=== PATIENT | female | born 1935 | race Caucasian/White ===

== ENCOUNTER 2017-06-16 12:41 | Inpatient (IN) | payer OTHER ==
[~2017-06-16] VITALS: Ht 142.2 cm; Wt 72.0 kg
[2017-06-16 13:16] LABS: BASOPHIL (%) 0.3 % (0-1); EOSINOPHIL (%) 0.8 % (0-5); EOSINOPHIL COUNT 0.1 K/uL (0-0.3); HEMATOCRIT 32.4 % (36.0-46.0); HEMOGLOBIN 10.5 G/DL (11.9-15.5); IMMATURE GRANULOCYTE (%) 0.8 % (0.0-0.7); LYMPHOCYTE (%) 9.6 % (15-42); LYMPHOCYTE COUNT 0.6 K/uL (1.0-2.8); MCH 33.1 PG (29.0-34.0); MCHC 32.4 G/DL (30.0-36.0); MCV 102.2 FL (83-99); MONOCYTE COUNT 0.3 K/uL (0-0.8); NEUTROPHIL (%) 83.5 % (45-76); NEUTROPHIL COUNT 5.3 K/uL (1.8-6.4); PLATELET COUNT 244 K/uL (156-360); RBC DIS.WIDTH-SD 60.7 % (39-53); RED BLOOD COUNT 3.17 M/uL (3.80-5.20); WHITE BLOOD COUNT 6.4 K/uL (4.1-10.2)
[2017-06-16 13:26] LABS: CHLORIDE 111 mEq/L (99-109); POTASSIUM 4.2 mEq/L (3.7-5.4); SODIUM 145 mEq/L (136-147)
[2017-06-16 13:27] LABS: GLUCOSE 113 mg/dL (70-99)
[2017-06-16 13:31] LABS: CREATININE 1.1 mg/dL (0.6-1.3); GFR ESTIMATE (CALCULATED) 51 mL/min/
[2017-06-16 13:32] LABS: UREA NITROGEN (BUN) 18 mg/dL (9-23)
[2017-06-16 13:37] LABS: TROP-I INTERPRETATION NEGATIVE; TROPONIN-I < 0.01 ng/mL (0.0-0.30)
[2017-06-16 14:06] LABS: PTT 30.1 SEC (25-37)
[2017-06-16 14:27] LABS: INTER. NORMALIZED RATIO 1.2
[2017-06-16] MEDS ORDERED: VENTOLIN HFA18 GM IH (14:33)
[2017-06-16] MEDS ORDERED: MOBIC15 MG PO (14:34)
[2017-06-16] MEDS ORDERED: ZOLOFT50 MG PO (14:35)
[2017-06-16] MEDS ORDERED: MOTRIN800 MG PO (14:36)
[2017-06-16] MEDS ORDERED: ZOCOR20 MG PO (14:37)
[2017-06-16] MEDS ORDERED: COZAAR50 MG PO (14:39)
[2017-06-16] MEDS ORDERED: TYLENOL PM EX-1 EACH PO (14:40)
[2017-06-16] MEDS ORDERED: LO-DOSE ASPIRIN81 M1 PO (14:42)
[2017-06-16] MEDS ORDERED: VITAMIN D31000 UNIT PO (14:44)
[2017-06-16] MEDS ORDERED: DUONEB 2.5-0.5 M3 ML AEROSOL (14:46)
[2017-06-16 14:47] LABS: HDL CHOLESTEROL 68 MG/DL (Desirable>=50); LDL CHOLESTEROL 53 mg/dL (Desirable<100); NON-HDL CHOLESTEROL 66 mg/dL (Desirable<160); TOTAL CHOLESTEROL 134 mg/dL (Desirable<200); TRIGLYCERIDES 65 MG/DL (Normal: <150)
[2017-06-16 15:23] LABS: FERRITIN 39 NG/ML (10-291)
[2017-06-16 15:32] LABS: FOLIC ACID (FOLATE) 20.5 NG/ML (5.0-22.0)
[2017-06-16 15:37] LABS: THYROTROPIN (TSH) 0.74 MIU/L (0.4-5.5)
[2017-06-16 19:04] LABS: TROP-I INTERPRETATION NEGATIVE; TROPONIN-I 0.01 ng/mL (0.0-0.30)
[2017-06-16 21:30] VITALS: BP 141/90
[2017-06-16 21:36] VITALS: BP 141/90
[2017-06-16 23:10] VITALS: BP 147/71
[2017-06-17 01:24] LABS: TROP-I INTERPRETATION NEGATIVE; TROPONIN-I < 0.01 ng/mL (0.0-0.30)
[2017-06-17 04:02] VITALS: BP 126/91
[2017-06-17 06:16] LABS: ALBUMIN 3.5 G/DL (3.2-4.8); ALKALINE PHOSPHATASE 93 IU/L (3-129); ALT (GPT) 12 IU/L (3-49); AST (GOT) 10 IU/L (2-34); CHLORIDE 109 MEQ/L (99-109); CREATININE 1.1 MG/DL (0.6-1.3); GFR ESTIMATE (CALCULATED) 51 mL/min/; GLUCOSE 141 mg/dL (70-99); POTASSIUM 4.7 MEQ/L (3.7-5.4); SODIUM 143 MEQ/L (136-147); TOTAL BILIRUBIN 0.4 MG/DL (0.0-1.0); TOTAL PROTEIN 5.6 G/DL (6.4-8.3); UREA NITROGEN (BUN) 19 mg/dL (9-23)
[2017-06-17 06:31] LABS: HEMATOCRIT 30.8 % (36.0-46.0); HEMOGLOBIN 9.6 G/DL (11.9-15.5); MCH 32.1 PG (29.0-34.0); MCHC 31.2 G/DL (30.0-36.0); PLATELET COUNT 246 K/uL (156-360); RBC DIS.WIDTH-CV 15.9 % (11.8-14.6); RBC DIS.WIDTH-SD 59.7 % (39-53); RED BLOOD COUNT 2.99 M/uL (3.80-5.20)
[2017-06-17 09:00] VITALS: BP 141/79
[2017-06-17 12:43] VITALS: BP 160/83
[2017-06-17 15:25] VITALS: BP 126/65
[2017-06-17 19:00] VITALS: BP 145/89
[2017-06-17 23:00] VITALS: BP 141/83
[2017-06-18 04:00] VITALS: BP 157/90
[2017-06-18 08:00] VITALS: BP 146/76
[2017-06-18 12:00] VITALS: BP 138/75
[2017-06-18 17:13] VITALS: BP 136/78
[2017-06-18 19:00] VITALS: BP 125/68
[2017-06-18 22:30] VITALS: BP 124/82
[2017-06-19] VITALS (11 sets, daily range): BP systolic 121–196; BP diastolic 61–99
[2017-06-19 16:53] LABS: TROP-I INTERPRETATION NEGATIVE; TROPONIN-I < 0.01 ng/mL (0.0-0.30)
[2017-06-19 20:28] LABS: BASOPHIL (%) 0.1 % (0-1); EOSINOPHIL (%) 0 % (0-5); HEMATOCRIT 36.1 % (36.0-46.0); HEMOGLOBIN 11.3 G/DL (11.9-15.5); IMMATURE GRANULOCYTE (%) 0.3 % (0.0-0.7); LYMPHOCYTE COUNT 0.2 K/uL (1.0-2.8); MCH 31.9 PG (29.0-34.0); MCHC 31.3 G/DL (30.0-36.0); MONOCYTE (%) 7.3 % (3-12); MONOCYTE COUNT 1.1 K/uL (0-0.8); NEUTROPHIL (%) 91.3 % (45-76); NEUTROPHIL COUNT 13.9 K/uL (1.8-6.4); RBC DIS.WIDTH-CV 15.8 % (11.8-14.6); RBC DIS.WIDTH-SD 60.3 % (39-53); RED BLOOD COUNT 3.54 M/uL (3.80-5.20); WHITE BLOOD COUNT 15.2 K/uL (4.1-10.2)
[2017-06-19 20:39] LABS: ALBUMIN 3.4 G/DL (3.2-4.8); CHLORIDE 108 MEQ/L (99-109); PLATELET COUNT 336 K/uL (156-360); POTASSIUM 4.4 MEQ/L (3.7-5.4); SODIUM 140 MEQ/L (136-147); TOTAL BILIRUBIN 0.4 MG/DL (0.0-1.0)
[2017-06-19 21:01] LABS: ALKALINE PHOSPHATASE 73 IU/L (3-129); ALT (GPT) 16 IU/L (3-49); AST (GOT) 10 IU/L (2-34); CREATININE 1.1 MG/DL (0.6-1.3); GFR ESTIMATE (CALCULATED) 51 mL/min/; GLUCOSE 174 mg/dL (70-99); TOTAL PROTEIN 5.5 G/DL (6.4-8.3)
[2017-06-19 21:02] LABS: UREA NITROGEN (BUN) 40 mg/dL (9-23)
[2017-06-19 21:18] LABS: C-REACTIVE PROTEIN 4.3 MG/L (0-10)
[2017-06-19 23:37] LABS: TROP-I INTERPRETATION NEGATIVE; TROPONIN-I < 0.01 ng/mL (0.0-0.30)
[2017-06-20] VITALS (15 sets, daily range): BP systolic 88–150; BP diastolic 58–90
[2017-06-20 06:50] LABS: TROP-I INTERPRETATION NEGATIVE; TROPONIN-I < 0.01 ng/mL (0.0-0.30)
[2017-06-20 15:29] LABS: INTER. NORMALIZED RATIO 1.6
[2017-06-20 15:32] LABS: PTT 20.1 SEC (25-37)
[2017-06-20 15:34] LABS: ANISOCYTOSIS 1+; BASOPHIL (%) 0.1 % (0-1); BICARBONATE 23.1 mEq/L (22-26); CARBOXY HGB 1.9 % (0-5); COMMENTS - BLOOD GASES A+C+; DEVICE VENT; EOSINOPHIL (%) 0 % (0-5); FI02 50 %; HEMATOCRIT 31.9 % (36.0-46.0); HEMOGLOBIN 9.9 G/DL (11.9-15.5); IMMATURE GRANULOCYTE (%) 0.2 % (0.0-0.7); LYMPHOCYTE (%) 2.3 % (15-42); LYMPHOCYTE COUNT 0.2 K/uL (1.0-2.8); MACROCYTES 1+; MCV 103.2 FL (83-99); METHEMOGLOBIN 1.4 % (0-1.5); MONOCYTE COUNT 0.4 K/uL (0-0.8); NEUTROPHIL (%) 93.4 % (45-76); NEUTROPHIL COUNT 8.4 K/uL (1.8-6.4); PCO2 40 mm Hg (35-45); PLAT.SUFFICIENCY ADEQUATE; PO2 112 mm Hg (80-100); POIKILOCYTOSIS 3+; RBC DIS.WIDTH-CV 16.2 % (11.8-14.6); RBC DIS.WIDTH-SD 61.7 % (39-53); RED BLOOD COUNT 3.09 M/uL (3.80-5.20); SCHISTOCYTES 1+; SITE LR; pH 7.37 (7.35-7.45)
[2017-06-20 15:35] LABS: MECHANICAL RATE 16 resp/min; MODE AC; PEEP 5 CM/H20; TIDAL VOLUME 400 ML; TOTAL RESP RATE 16 resp/min
[2017-06-20 15:36] LABS: PLATELET COUNT 229 K/uL (156-360)
[2017-06-20 15:39] LABS: ALBUMIN 2.7 G/DL (3.2-4.8); ALKALINE PHOSPHATASE 45 IU/L (3-129); CHLORIDE 112 MEQ/L (99-109); GFR ESTIMATE (CALCULATED) 56 mL/min/; GLUCOSE 179 mg/dL (70-99); MAGNESIUM 2.6 mg/dl (1.3-2.7); PHOSPHORUS 2.9 mg/dL (2.5-4.9); POTASSIUM 4.6 MEQ/L (3.7-5.4); SODIUM 141 MEQ/L (136-147); TOTAL BILIRUBIN 0.4 MG/DL (0.0-1.0); UREA NITROGEN (BUN) 37 mg/dL (9-23)
[2017-06-20 15:41] LABS: ALT (GPT) 38 IU/L (3-49); AST (GOT) 32 IU/L (2-34); TOTAL PROTEIN 4.5 G/DL (6.4-8.3)
[2017-06-20 20:42] LABS: BICARBONATE 22.6 mEq/L (22-26); CARBOXY HGB 1.4 % (0-5); METHEMOGLOBIN 1.6 % (0-1.5); PO2 109 mm Hg (80-100)
[2017-06-20 20:44] LABS: DEVICE 980; FI02 40 %; MECHANICAL RATE 16 resp/min; MODE ACVC; PCO2 47 mm Hg (35-45); PEEP 5 CM/H20; SITE RR; TIDAL VOLUME 400 ML; TOTAL RESP RATE 16 resp/min; pH 7.29 (7.35-7.45)
[2017-06-20 20:45] LABS: COMMENTS - BLOOD GASES A+C+
[2017-06-21] VITALS (24 sets, daily range): BP systolic 92–128; BP diastolic 58–89
[2017-06-21 05:45] LABS: HEMOGLOBIN 9.4 G/DL (11.9-15.5); MCH 32.4 PG (29.0-34.0); MCHC 31.3 G/DL (30.0-36.0); MCV 103.4 FL (83-99); PLATELET COUNT 197 K/uL (156-360); RBC DIS.WIDTH-CV 16.4 % (11.8-14.6); RBC DIS.WIDTH-SD 62.2 % (39-53); WHITE BLOOD COUNT 9.2 K/uL (4.1-10.2)
[2017-06-21 06:10] LABS: CHLORIDE 115 MEQ/L (99-109); GFR ESTIMATE (CALCULATED) 56 mL/min/; GLUCOSE 133 mg/dL (70-99); POTASSIUM 4.8 MEQ/L (3.7-5.4); SODIUM 144 MEQ/L (136-147); UREA NITROGEN (BUN) 32 mg/dL (9-23)
[2017-06-21 09:41] LABS: INTER. NORMALIZED RATIO 1.4
[2017-06-21 12:01] LABS: BASE EXCESS -4.4 mEq/L (-3 to +3); BICARBONATE 21.7 mEq/L (22-26); CARBOXY HGB 1.6 % (0-5); METHEMOGLOBIN 1.8 % (0-1.5); PCO2 43 mm Hg (35-45); PO2 100 mm Hg (80-100); pH 7.31 (7.35-7.45)
[2017-06-21 12:02] LABS: COMMENTS - BLOOD GASES A+C+; DEVICE VENT; FI02 30 %; MODE SPONT; PRES. SUPPORT 11 CM/H2O; SITE RR; TOTAL RESP RATE 11 resp/min
[2017-06-21 13:23] LABS: BASE EXCESS -3.1 mEq/L (-3 to +3); BICARBONATE 22.7 mEq/L (22-26); CARBOXY HGB 1.7 % (0-5); COMMENTS - BLOOD GASES A+C+; METHEMOGLOBIN 1.8 % (0-1.5); PCO2 43 mm Hg (35-45); PO2 94 mm Hg (80-100); SITE LR; pH 7.33 (7.35-7.45)
[2017-06-21 13:24] LABS: DEVICE VENT; FI02 30 %; MODE SPONT; PRES. SUPPORT 11 CM/H2O; TOTAL RESP RATE 8 resp/min
[2017-06-22] VITALS (23 sets, daily range): BP systolic 109–170; BP diastolic 68–108
[2017-06-22 09:13] LABS: ALBUMIN 2.8 G/DL (3.2-4.8); ALKALINE PHOSPHATASE 42 IU/L (3-129); ALT (GPT) 23 IU/L (3-49); CHLORIDE 116 MEQ/L (99-109); CREATININE 1.1 MG/DL (0.6-1.3); GFR ESTIMATE (CALCULATED) 51 mL/min/; POTASSIUM 4.7 MEQ/L (3.7-5.4); SODIUM 146 MEQ/L (136-147); TOTAL BILIRUBIN 0.4 MG/DL (0.0-1.0); TOTAL PROTEIN 4.4 G/DL (6.4-8.3); UREA NITROGEN (BUN) 29 mg/dL (9-23)
[2017-06-22 09:14] LABS: AST (GOT) 9 IU/L (2-34); GLUCOSE 98 mg/dL (70-99)
[2017-06-23] VITALS (16 sets, daily range): BP systolic 127–176; BP diastolic 77–125
[2017-06-23 05:50] LABS: BASOPHIL (%) 0.1 % (0-1); EOSINOPHIL (%) 0.4 % (0-5); EOSINOPHIL COUNT 0.1 K/uL (0-0.3); HEMATOCRIT 32.3 % (36.0-46.0); HEMOGLOBIN 10.1 G/DL (11.9-15.5); IMMATURE GRANULOCYTE (%) 0.7 % (0.0-0.7); LYMPHOCYTE (%) 6.1 % (15-42); LYMPHOCYTE COUNT 0.8 K/uL (1.0-2.8); MCH 32.6 PG (29.0-34.0); MCHC 31.3 G/DL (30.0-36.0); MCV 104.2 FL (83-99); MONOCYTE (%) 7.6 % (3-12); NEUTROPHIL (%) 85.1 % (45-76); NEUTROPHIL COUNT 11.5 K/uL (1.8-6.4); PLATELET COUNT 247 K/uL (156-360); RBC DIS.WIDTH-CV 16.1 % (11.8-14.6); RBC DIS.WIDTH-SD 62.2 % (39-53); WHITE BLOOD COUNT 13.5 K/uL (4.1-10.2)
[2017-06-23 06:09] LABS: CHLORIDE 113 MEQ/L (99-109); CREATININE 0.9 MG/DL (0.6-1.3); GFR ESTIMATE (CALCULATED) > 59 mL/min/; GLUCOSE 74 mg/dL (70-99); MAGNESIUM 2.1 mg/dl (1.3-2.7); PHOSPHORUS 2.7 mg/dL (2.5-4.9); POTASSIUM 4.5 MEQ/L (3.7-5.4); SODIUM 145 MEQ/L (136-147); UREA NITROGEN (BUN) 24 mg/dL (9-23)
[2017-06-24] VITALS (11 sets, daily range): BP systolic 121–187; BP diastolic 70–122
[2017-06-24 06:06] LABS: BASOPHIL (%) 0.1 % (0-1); EOSINOPHIL (%) 0.5 % (0-5); EOSINOPHIL COUNT 0.1 K/uL (0-0.3); HEMATOCRIT 34.2 % (36.0-46.0); HEMOGLOBIN 10.5 G/DL (11.9-15.5); IMMATURE GRANULOCYTE (%) 0.6 % (0.0-0.7); LYMPHOCYTE (%) 6.3 % (15-42); LYMPHOCYTE COUNT 0.8 K/uL (1.0-2.8); MCH 31.3 PG (29.0-34.0); MCHC 30.7 G/DL (30.0-36.0); MCV 101.8 FL (83-99); MONOCYTE (%) 7.8 % (3-12); NEUTROPHIL (%) 84.7 % (45-76); PLATELET COUNT 266 K/uL (156-360); RBC DIS.WIDTH-CV 15.4 % (11.8-14.6); RBC DIS.WIDTH-SD 57.8 % (39-53); RED BLOOD COUNT 3.36 M/uL (3.80-5.20); WHITE BLOOD COUNT 12.9 K/uL (4.1-10.2)
[2017-06-24 06:41] LABS: CHLORIDE 112 MEQ/L (99-109); CREATININE 0.7 MG/DL (0.6-1.3); GFR ESTIMATE (CALCULATED) > 59 mL/min/; POTASSIUM 4.2 MEQ/L (3.7-5.4); SODIUM 146 MEQ/L (136-147); UREA NITROGEN (BUN) 18 mg/dL (9-23)
[2017-06-24 06:56] LABS: GLUCOSE 101 mg/dL (70-99)
[2017-06-25] VITALS (13 sets, daily range): BP systolic 117–140; BP diastolic 71–103
[2017-06-25 05:01] LABS: BASOPHIL (%) 0.1 % (0-1); EOSINOPHIL (%) 0.1 % (0-5); HEMATOCRIT 34.4 % (36.0-46.0); HEMOGLOBIN 11.1 G/DL (11.9-15.5); IMMATURE GRANULOCYTE (%) 0.7 % (0.0-0.7); LYMPHOCYTE (%) 3.8 % (15-42); LYMPHOCYTE COUNT 0.7 K/uL (1.0-2.8); MCH 32.3 PG (29.0-34.0); MCHC 32.3 G/DL (30.0-36.0); MONOCYTE (%) 8.8 % (3-12); MONOCYTE COUNT 1.5 K/uL (0-0.8); NEUTROPHIL (%) 86.5 % (45-76); PLATELET COUNT 279 K/uL (156-360); RBC DIS.WIDTH-SD 54.6 % (39-53); RED BLOOD COUNT 3.44 M/uL (3.80-5.20); WHITE BLOOD COUNT 17.3 K/uL (4.1-10.2)
[2017-06-25 05:16] LABS: CHLORIDE 110 mEq/L (99-109); POTASSIUM 3.8 mEq/L (3.7-5.4); SODIUM 145 mEq/L (136-147)
[2017-06-25 05:18] LABS: GLUCOSE 129 mg/dL (70-99)
[2017-06-25 05:22] LABS: CREATININE 0.7 mg/dL (0.6-1.3); GFR ESTIMATE (CALCULATED) > 59 mL/min/
[2017-06-25 05:23] LABS: UREA NITROGEN (BUN) 11 mg/dL (9-23)
[2017-06-25 16:17] LABS: APPEARANCE CLEAR ((CLEAR)); BILIRUBIN NEGATIVE; BLOOD MODERATE; COLOR YELLOW ((YELLOW)); GLUCOSE (STRIP) 50; KETONES NEGATIVE; LEUKOCYTES NEGATIVE; NITRITE NEGATIVE; PROTEIN (STRIP) NEGATIVE; SPECIFIC GRAVITY 1.019 (1.000-1.030); UROBILINOGEN 0.2 MG/DL (0.2-1.0)
[2017-06-25 16:22] LABS: RED BLOOD CELLS 0-5 /HPF (0-5); WHITE BLOOD CELLS 0-5 /HPF (0-5)
[2017-06-25 16:23] LABS: BACTERIA NONE SEEN /HPF; EPITHELIAL CELLS NONE SEEN /HPF; HYALINE CASTS 0-5 /LPF; MUCUS TRACE /LPF; UCUL ADDED? NO
[2017-06-25 22:15] LABS: INTER. NORMALIZED RATIO 2.3
[2017-06-25 22:18] LABS: PTT 34.7 SEC (25-37)
[2017-06-26] VITALS (8 sets, daily range): BP systolic 136–170; BP diastolic 78–112
[2017-06-26 05:22] LABS: CHLORIDE 107 MEQ/L (99-109); CREATININE 0.7 MG/DL (0.6-1.3); GFR ESTIMATE (CALCULATED) > 59 mL/min/; GLUCOSE 113 mg/dL (70-99); POTASSIUM 3.5 MEQ/L (3.7-5.4); SODIUM 144 MEQ/L (136-147); UREA NITROGEN (BUN) 9 mg/dL (9-23)
[2017-06-26 05:37] LABS: BASOPHIL (%) 0.1 % (0-1); EOSINOPHIL (%) 0.1 % (0-5); HEMOGLOBIN 10.2 G/DL (11.9-15.5); IMMATURE GRANULOCYTE (%) 0.8 % (0.0-0.7); LYMPHOCYTE COUNT 0.5 K/uL (1.0-2.8); MCH 32.4 PG (29.0-34.0); MCHC 31.9 G/DL (30.0-36.0); MCV 101.6 FL (83-99); MONOCYTE (%) 7.9 % (3-12); MONOCYTE COUNT 1.4 K/uL (0-0.8); NEUTROPHIL (%) 88.1 % (45-76); NEUTROPHIL COUNT 15.8 K/uL (1.8-6.4); PLATELET COUNT 263 K/uL (156-360); RBC DIS.WIDTH-CV 15.7 % (11.8-14.6); RBC DIS.WIDTH-SD 58.5 % (39-53); RED BLOOD COUNT 3.15 M/uL (3.80-5.20); WHITE BLOOD COUNT 17.9 K/uL (4.1-10.2)
[2017-06-27] VITALS (24 sets, daily range): BP systolic 104–203; BP diastolic 55–158
[2017-06-27 06:43] LABS: BASE EXCESS 4.4 mEq/L (-3 to +3); CARBOXY HGB 2.1 % (0-5); METHEMOGLOBIN 1.4 % (0-1.5); PCO2 53 mm Hg (35-45); pH 7.37 (7.35-7.45)
[2017-06-27 06:44] LABS: BICARBONATE 30.6 mEq/L (22-26); COMMENTS - BLOOD GASES A+C+; DEVICE NC; O2 FLOW 4 L/MIN; PO2 68 mm Hg (80-100); SITE RR; TOTAL RESP RATE 30 resp/min
[2017-06-27 07:11] LABS: HEMATOCRIT 34.5 % (36.0-46.0); HEMOGLOBIN 10.7 G/DL (11.9-15.5); MCH 31.1 PG (29.0-34.0); MCV 100.3 FL (83-99); RBC DIS.WIDTH-CV 15.4 % (11.8-14.6); RBC DIS.WIDTH-SD 56.7 % (39-53); RED BLOOD COUNT 3.44 M/uL (3.80-5.20); WHITE BLOOD COUNT 22.9 K/uL (4.1-10.2)
[2017-06-27 07:22] LABS: PLATELET COUNT 379 K/uL (156-360)
[2017-06-27 08:24] LABS: CHLORIDE 106 MEQ/L (99-109); CREATININE 0.7 MG/DL (0.6-1.3); GFR ESTIMATE (CALCULATED) > 59 mL/min/; GLUCOSE 117 mg/dL (70-99); POTASSIUM 3.3 MEQ/L (3.7-5.4); SODIUM 146 MEQ/L (136-147); UREA NITROGEN (BUN) 11 mg/dL (9-23)
[2017-06-27 10:04] LABS: MAGNESIUM 1.7 mg/dl (1.3-2.7)
[2017-06-28] VITALS (10 sets, daily range): BP systolic 128–152; BP diastolic 79–89
[2017-06-28 05:24] LABS: BASOPHIL (%) 0.1 % (0-1); EOSINOPHIL (%) 0 % (0-5); HEMATOCRIT 30.8 % (36.0-46.0); HEMOGLOBIN 9.9 G/DL (11.9-15.5); IMMATURE GRANULOCYTE (%) 0.8 % (0.0-0.7); LYMPHOCYTE (%) 2.9 % (15-42); LYMPHOCYTE COUNT 0.4 K/uL (1.0-2.8); MCH 32.2 PG (29.0-34.0); MCHC 32.1 G/DL (30.0-36.0); MCV 100.3 FL (83-99); MONOCYTE (%) 1.2 % (3-12); MONOCYTE COUNT 0.2 K/uL (0-0.8); NEUTROPHIL COUNT 13.9 K/uL (1.8-6.4); PLATELET COUNT 288 K/uL (156-360); RBC DIS.WIDTH-CV 15.5 % (11.8-14.6); RBC DIS.WIDTH-SD 56.9 % (39-53); RED BLOOD COUNT 3.07 M/uL (3.80-5.20); WHITE BLOOD COUNT 14.6 K/uL (4.1-10.2)
[2017-06-28 06:01] LABS: CHLORIDE 106 MEQ/L (99-109); CREATININE 0.8 MG/DL (0.6-1.3); GFR ESTIMATE (CALCULATED) > 59 mL/min/; GLUCOSE 159 mg/dL (70-99); MAGNESIUM 1.7 mg/dl (1.3-2.7); POTASSIUM 3.1 MEQ/L (3.7-5.4); SODIUM 151 MEQ/L (136-147); UREA NITROGEN (BUN) 12 mg/dL (9-23)
[2017-06-29] VITALS (17 sets, daily range): BP systolic 110–162; BP diastolic 64–100
[2017-06-29 05:46] LABS: BASOPHIL (%) 0.1 % (0-1); EOSINOPHIL (%) 0 % (0-5); HEMATOCRIT 29.8 % (36.0-46.0); HEMOGLOBIN 9.2 G/DL (11.9-15.5); IMMATURE GRANULOCYTE (%) 0.8 % (0.0-0.7); LYMPHOCYTE COUNT 0.4 K/uL (1.0-2.8); MCH 31.1 PG (29.0-34.0); MCHC 30.9 G/DL (30.0-36.0); MCV 100.7 FL (83-99); MONOCYTE (%) 1.1 % (3-12); MONOCYTE COUNT 0.2 K/uL (0-0.8); PLATELET COUNT 280 K/uL (156-360); RBC DIS.WIDTH-CV 15.7 % (11.8-14.6); RBC DIS.WIDTH-SD 58.3 % (39-53); RED BLOOD COUNT 2.96 M/uL (3.80-5.20); WHITE BLOOD COUNT 20.9 K/uL (4.1-10.2)
[2017-06-29 07:25] LABS: CHLORIDE 115 MEQ/L (99-109); CREATININE 0.9 MG/DL (0.6-1.3); GFR ESTIMATE (CALCULATED) > 59 mL/min/; GLUCOSE 136 mg/dL (70-99); POTASSIUM 3.7 MEQ/L (3.7-5.4); SODIUM 154 MEQ/L (136-147); UREA NITROGEN (BUN) 20 mg/dL (9-23)
[2017-06-29 10:56] LABS: C DIFF TOXIN NEGATIVE (NEGATIVE)
[2017-06-29 16:22] LABS: HEMOGLOBIN 7.5 G/DL (11.9-15.5); MCH 32.1 PG (29.0-34.0); MCHC 31.3 G/DL (30.0-36.0); MCV 102.6 FL (83-99); PLATELET COUNT 277 K/uL (156-360); RBC DIS.WIDTH-CV 15.9 % (11.8-14.6); RED BLOOD COUNT 2.34 M/uL (3.80-5.20); WHITE BLOOD COUNT 21.3 K/uL (4.1-10.2)
[2017-06-29 17:19] LABS: INTER. NORMALIZED RATIO 1.4
[2017-06-29 17:23] LABS: CHLORIDE 119 MEQ/L (99-109); CREATININE 0.8 MG/DL (0.6-1.3); GFR ESTIMATE (CALCULATED) > 59 mL/min/; GLUCOSE 140 mg/dL (70-99); POTASSIUM 4.2 MEQ/L (3.7-5.4); SODIUM 153 MEQ/L (136-147); UREA NITROGEN (BUN) 25 mg/dL (9-23)
[2017-06-29 17:29] LABS: PTT 27.8 SEC (25-37)
[2017-06-29 17:44] LABS: APPEARANCE SL.HAZY ((CLEAR)); BILIRUBIN NEGATIVE; BLOOD NEGATIVE; COLOR YELLOW ((YELLOW)); GLUCOSE (STRIP) NEGATIVE; KETONES NEGATIVE; LEUKOCYTES NEGATIVE; NITRITE NEGATIVE; PROTEIN (STRIP) NEGATIVE; SPECIFIC GRAVITY 1.017 (1.000-1.030); UROBILINOGEN 0.2 MG/DL (0.2-1.0)
[2017-06-29 17:54] LABS: BACTERIA RARE /HPF; CALCIUM OXALATE CRYSTALS 3+ /HPF; EPITHELIAL CELLS RARE /HPF; HYALINE CASTS 30-40 /LPF; MUCUS 4+ /LPF
[2017-06-30] VITALS (12 sets, daily range): BP systolic 129–161; BP diastolic 82–110
[2017-06-30 00:03] LABS: CHLORIDE 109 MEQ/L (99-109); CREATININE 0.8 MG/DL (0.6-1.3); GFR ESTIMATE (CALCULATED) > 59 mL/min/; GLUCOSE 204 mg/dL (70-99); POTASSIUM 3.5 MEQ/L (3.7-5.4); SODIUM 145 MEQ/L (136-147); UREA NITROGEN (BUN) 25 mg/dL (9-23)
[2017-06-30 05:44] LABS: BASOPHIL (%) 0.1 % (0-1); EOSINOPHIL (%) 0 % (0-5); HEMATOCRIT 32.2 % (36.0-46.0); LYMPHOCYTE COUNT 0.2 K/uL (1.0-2.8); MCH 31.8 PG (29.0-34.0); MCHC 33.2 G/DL (30.0-36.0); MONOCYTE (%) 2.1 % (3-12); MONOCYTE COUNT 0.5 K/uL (0-0.8); NEUTROPHIL (%) 95.8 % (45-76); NEUTROPHIL COUNT 20.2 K/uL (1.8-6.4); PLATELET COUNT 248 K/uL (156-360); RBC DIS.WIDTH-CV 16.9 % (11.8-14.6); RBC DIS.WIDTH-SD 58.6 % (39-53); WHITE BLOOD COUNT 21.1 K/uL (4.1-10.2)
[2017-06-30 05:45] LABS: HEMOGLOBIN 10.7 G/DL (11.9-15.5); MCV 95.8 FL (83-99); RED BLOOD COUNT 3.36 M/uL (3.80-5.20)
[2017-06-30 06:01] LABS: CHLORIDE 108 MEQ/L (99-109); CREATININE 0.8 MG/DL (0.6-1.3); GFR ESTIMATE (CALCULATED) > 59 mL/min/; GLUCOSE 134 mg/dL (70-99); POTASSIUM 3.4 MEQ/L (3.7-5.4); SODIUM 147 MEQ/L (136-147); UREA NITROGEN (BUN) 26 mg/dL (9-23)
[2017-06-30 12:25] LABS: HEMATOCRIT 34.2 % (36.0-46.0); HEMOGLOBIN 11.4 G/DL (11.9-15.5); MCV 96.1 FL (83-99)
[2017-06-30 14:18] LABS: STOOL OCCULT BLD 1ST SPECIMEN POSITIVE
[2017-06-30 17:37] LABS: BASE EXCESS 2.9 mEq/L (-3 to +3); BICARBONATE 28.5 mEq/L (22-26); CARBOXY HGB 3.2 % (0-5); COMMENTS - BLOOD GASES A+C+; DEVICE NC; O2 FLOW 2 L/MIN; PCO2 47 mm Hg (35-45); PO2 81 mm Hg (80-100); SITE RR; pH 7.39 (7.35-7.45)
[2017-06-30 17:44] LABS: HEMATOCRIT 34.6 % (36.0-46.0); HEMOGLOBIN 11.7 G/DL (11.9-15.5); MCV 96.1 FL (83-99)
[2017-07-01] VITALS: BP 121/64
[2017-07-01 00:45] LABS: HEMATOCRIT 33.3 % (36.0-46.0); HEMOGLOBIN 11.1 G/DL (11.9-15.5); MCV 96.2 FL (83-99)
[2017-07-01 04:00] VITALS: BP 125/76
[2017-07-01 05:33] LABS: HEMATOCRIT 32.8 % (36.0-46.0)
[2017-07-01 06:00] LABS: CHLORIDE 111 MEQ/L (99-109); CREATININE 1.1 MG/DL (0.6-1.3); GFR ESTIMATE (CALCULATED) 51 mL/min/; GLUCOSE 158 mg/dL (70-99); MAGNESIUM 1.8 mg/dl (1.3-2.7); SODIUM 147 MEQ/L (136-147); UREA NITROGEN (BUN) 37 mg/dL (9-23)
[2017-07-01 06:01] LABS: POTASSIUM 4.5 MEQ/L (3.7-5.4)
[2017-07-01 07:51] VITALS: BP 151/51
[2017-07-01 11:01] LABS: HEMATOCRIT 33.4 % (36.0-46.0); MCV 95.7 FL (83-99)
[2017-07-01 12:00] VITALS: BP 123/71
[2017-07-01 16:05] VITALS: BP 134/90
[2017-07-01 18:18] LABS: HEMATOCRIT 34.6 % (36.0-46.0); HEMOGLOBIN 11.4 G/DL (11.9-15.5); MCV 95.1 FL (83-99)
[2017-07-01 20:00] VITALS: BP 117/75
[2017-07-02] VITALS: BP 104/45
[2017-07-02 00:44] LABS: HEMATOCRIT 36.1 % (36.0-46.0); HEMOGLOBIN 12.2 G/DL (11.9-15.5); MCV 94.5 FL (83-99)
[2017-07-02 05:13] LABS: HEMATOCRIT 40.6 % (36.0-46.0); HEMOGLOBIN 13.1 G/DL (11.9-15.5); MCV 96.2 FL (83-99)
[2017-07-02 05:30] LABS: CHLORIDE 109 MEQ/L (99-109); GLUCOSE 159 mg/dL (70-99); SODIUM 145 MEQ/L (136-147); UREA NITROGEN (BUN) 51 mg/dL (9-23)
[2017-07-02 05:32] LABS: CREATININE 1.7 MG/DL (0.6-1.3); GFR ESTIMATE (CALCULATED) 31 mL/min/; MAGNESIUM 2.2 mg/dl (1.3-2.7)
[2017-07-02 10:02] VITALS: BP 66/24
== END 2017-07-02 14:40 | DRG 981 ==
LOC: EME 12:41 → 4WEST 13:57 → 4EAST 13:57 → EDOF 13:57 → 4WEST 13:57 → ENRESERV 13:59 → 4EAST 21:19 → ENRESERV 06-20 12:52 → 4WEST 06-20 14:09 → CANRESERV 06-23 11:46 → ENRESERV 06-23 11:46 → 4WEST 06-29 17:33
PROVIDERS: Emergency Medicine; Family Medicine; Hospitalist; Internal Medicine; Internal Medicine Nephrology; Internal Medicine Pulmonary Disease; Obstetrics & Gynecology; Physician Assistant; Physician Assistant Medical; Physician Assistant Surgical; Specialist; Student in an Organized Health Care Education/Training Program; Surgery
PROC: 5A1945Z Respiratory Ventilation, 24-96 Consecutive Hours (ICD-10-PCS; principal; 2017-06-20)
PROC: 0BH17EZ Insertion of Endotracheal Airway into Trachea, Via Natural or Artificial Opening (ICD-10-PCS; principal; 2017-06-20)
PROC: 0DJ08ZZ Inspection of Upper Intestinal Tract, Via Natural or Artificial Opening Endoscopic (ICD-10-PCS; principal; 2017-06-20)
PROC: 0DB64ZZ Excision of Stomach, Percutaneous Endoscopic Approach (ICD-10-PCS; principal; 2017-06-20)
PROC: 0D164ZA Bypass Stomach to Jejunum, Percutaneous Endoscopic Approach (ICD-10-PCS; principal; 2017-06-20)
PROC: 30233K1 Transfusion of Nonautologous Frozen Plasma into Peripheral Vein, Percutaneous Approach (ICD-10-PCS; 2017-06-29)
PROC: 30233N1 Transfusion of Nonautologous Red Blood Cells into Peripheral Vein, Percutaneous Approach (ICD-10-PCS; 2017-06-29)
DX: J18.9 Pneumonia, unspecified organism (principal); I48.91 Unspecified atrial fibrillation; K25.6 Chronic or unspecified gastric ulcer with both hemorrhage and perforation; K65.8 Other peritonitis; B37.89 Other sites of candidiasis; D62 Acute posthemorrhagic anemia; J96.21 Acute and chronic respiratory failure with hypoxia; J44.1 Chronic obstructive pulmonary disease with (acute) exacerbation; J44.0 Chronic obstructive pulmonary disease with (acute) lower respiratory infection; Z51.5 Encounter for palliative care; E87.0 Hyperosmolality and hypernatremia; E87.6 Hypokalemia; I11.0 Hypertensive heart disease with heart failure; I50.9 Heart failure, unspecified; J98.11 Atelectasis; I95.9 Hypotension, unspecified; R00.0 Tachycardia, unspecified; R19.7 Diarrhea, unspecified; K59.00 Constipation, unspecified; E66.9 Obesity, unspecified; Z68.36 Body mass index [BMI] 36.0-36.9, adult; Z79.01 Long term (current) use of anticoagulants; Z82.49 Family history of ischemic heart disease and other diseases of the circulatory system; Z87.891 Personal history of nicotine dependence; Z90.710 Acquired absence of both cervix and uterus
CPT/HCPCS: 36600; 71045; 74018; 74177; 74220; 76604; 80048; 80048 91; 80053; 80061; 81003; 82272; 82330; 82607; 82728; 82746; 82803; 82948; 83605; 83735; 83880; 84100; 84443; 84484; 85014; 85018; 85025; 85027; 85379; 85610; 85730; 86140; 86850; 86900; 86901; 86920; 87040; 87070; 87075; 87077; 87086; 87186; 87205; 87493; 87641; 88307; 88342 TC; 93005; 93306; 94002; 94003; 94010; 94640; 94640 76; 94760; 94799; 97530 GO; 97530 GP; 99202; 99281; 99285; C9113; J0131; J0330; J0456; J0696; J1100; J1160; J1170; J1450; J1644; J1815; J1940; J2001; J2060; J2248; J2270; J2405; J2543; J2704; J2710; J2920; J2930; J3010; J3475; J3480; J7030; J7040; J7050; J7070; J7120; P9016; P9017; P9047